=== PATIENT | male | born 1990 | race Caucasian/White ===

== ENCOUNTER 2020-07-24 10:09 | Emergency (ER) | payer OTHER ==
[~2020-07-24] VITALS: Ht 180.3 cm; Wt 93.4 kg
[2020-07-24 12:15] VITALS: BP 134/89
== END 2020-07-24 12:16 | disposition home or self-care (01) ==
LOC: M.ERS 10:09
DX: Z20.828 Contact with and (suspected) exposure to other viral communicable diseases (principal)